=== PATIENT | female | born 1960 | race Caucasian/White ===

== ENCOUNTER 2017-01-02 08:34 | Observation (INO) | payer BC, OTHER ==
[~2017-01-02] VITALS: Ht 175.3 cm; Wt 73.6 kg
[2017-01-02] MEDS ORDERED: CELEBREX 200MG200 MG PO (09:10)
[2017-01-02] MEDS ORDERED: ELMIRON 10100 MG/CA1 PO (09:10)
[2017-01-02] MEDS ORDERED: COUMADIN 5MG5 MG/TAB PO (09:10)
[2017-01-02] MEDS ORDERED: ZANTAC 7575 MG PO (09:11)
[2017-01-02] MEDS ORDERED: VITAMIN D1000 IU PO (09:12)
[2017-01-02] MEDS ORDERED: CALCIUM CARBON650 M2 PO (09:12)
[2017-01-02 09:29] LABS: BASO # 0.1 (0.0-0.2); BASO % 1.2 % (0.0-2.0); EOS # 0.1 (0.0-0.7); EOS % 1.7 % (0-4.0); GRAN # 5.7 (1.4-6.5); GRAN % 76.9 % (42.2-75.2); HEMOGLOBIN 13.8 g/dl (12.5-16.0); LYMPH % 13.1 % (20.0-51.0); MEAN CELL VOLUME 93 fl (80.0-100.0); MEAN CORPUSCULAR HEMOGLOBIN 31 pg (27.0-31.0); MEAN CORPUSCULAR HGB CONC 34 g/dl (33.0-37.0); MEAN PLATELET VOLUME 10.6 fl (7.4-10.4); MONO # 0.5 (0.1-0.6); PLATELET COUNT 209 K/mm3 (130-400); RED BLOOD COUNT 4.41 M/mm3 (4.10-5.30); REDCELL DISTRIBUTION WIDTH-CV 13.2 % (11.5-14.5); WHITE BLOOD COUNT 7.5 K/mm3 (4.8-10.8)
[2017-01-02 09:30] LABS: INR 2.7 (0.8-3.0); PROTHROMBIN TIME 30.8 SECONDS (9.7-12.8)
[2017-01-02 09:40] LABS: ADJUSTED CALCIUM 8.3 mg/dL (8.4-10.2); ALBUMIN 4.2 gm/dL (3.5-5.0); BILIRUBIN,TOTAL 0.8 mg/dL (0.0-1.0); CALCIUM 8.5 mg/dL (8.4-10.2); CREATININE, serum 0.71 mg/dL (0.52-1.25); POTASSIUM 3.7 mmol/L (3.4-5.0)
[2017-01-02 14:09] VITALS: BP 124/56; PULSE 79
[2017-01-02] MEDS ORDERED: NORVASC 10MG10 MG PO (15:07)
[2017-01-02] MEDS ORDERED: FLONASEALLERGY NS (15:07)
[2017-01-02 18:37] VITALS: BP 117/53; PULSE 72
[2017-01-02 21:58] VITALS: BP 115/51; PULSE 73; TEMP 98.1
[2017-01-03 02:00] VITALS: BP 118/56; PULSE 70; TEMP 97.9
[2017-01-03 06:00] VITALS: BP 118/52; PULSE 73; TEMP 98.1
[2017-01-03 08:55] LABS: BASO # 0.1 (0.0-0.2); BASO % 0.9 % (0.0-2.0); EOS # 0.2 (0.0-0.7); EOS % 2.1 % (0-4.0); GRAN # 6.5 (1.4-6.5); GRAN % 79.1 % (42.2-75.2); HEMATOCRIT 41.1 % (37.0-47.0); HEMOGLOBIN 13.8 g/dl (12.5-16.0); LYMPH # 0.9 (1.2-3.4); LYMPH % 11.3 % (20.0-51.0); MEAN CELL VOLUME 95 fl (80.0-100.0); MEAN CORPUSCULAR HEMOGLOBIN 32 pg (27.0-31.0); MEAN CORPUSCULAR HGB CONC 34 g/dl (33.0-37.0); MEAN PLATELET VOLUME 10.9 fl (7.4-10.4); MONO # 0.5 (0.1-0.6); MONO % 6.2 % (1.7-9.3); PLATELET COUNT 206 K/mm3 (130-400); RED BLOOD COUNT 4.34 M/mm3 (4.10-5.30); REDCELL DISTRIBUTION WIDTH-CV 13.4 % (11.5-14.5); WHITE BLOOD COUNT 8.2 K/mm3 (4.8-10.8)
[2017-01-03 09:07] LABS: INR 3.2 (0.8-3.0); PROTHROMBIN TIME 37.4 SECONDS (9.7-12.8)
[2017-01-03 10:50] VITALS: BP 128/64; PULSE 65; TEMP 98.1
[2017-01-03] MEDS ORDERED: TYLENOL 325MG325 MG PO (13:06)
[2017-01-03] MEDS ORDERED: ZOFRAN 4MG T4 MG/TAB PO (13:07)
[2017-01-03] MEDS ORDERED: NORCO 325 MG-7.1 TAB PO (13:08)
== END 2017-01-03 16:18 | disposition home or self-care (01) ==
LOC: COL.ER 08:34 → SURG 12:19
PROVIDERS: Emergency Medicine; Nurse Practitioner Family
DX: S32.512A Fracture of superior rim of left pubis, initial encounter for closed fracture (principal); S32.511A Fracture of superior rim of right pubis, initial encounter for closed fracture; S32.602A Unspecified fracture of left ischium, initial encounter for closed fracture; S32.601A Unspecified fracture of right ischium, initial encounter for closed fracture; S32.10XA Unspecified fracture of sacrum, initial encounter for closed fracture; M70.62 Trochanteric bursitis, left hip; M70.61 Trochanteric bursitis, right hip; W10.8XXA Fall (on) (from) other stairs and steps, initial encounter; Y93.01 Activity, walking, marching and hiking; Y92.009 Unspecified place in unspecified non-institutional (private) residence as the place of occurrence of the external cause; Z95.2 Presence of prosthetic heart valve; Q23.1 Congenital insufficiency of aortic valve; Z79.01 Long term (current) use of anticoagulants; I10 Essential (primary) hypertension; G89.29 Other chronic pain; M46.97 Unspecified inflammatory spondylopathy, lumbosacral region; N30.10 Interstitial cystitis (chronic) without hematuria
CPT/HCPCS: 99223-AI; G0378; G8978-GP; G8979-GP; J2405; J7030